=== PATIENT | female | born 1995 | race Caucasian/White ===

== ENCOUNTER 2018-11-03 20:35 | Emergency (ER) | payer SELFPAY ==
[~2018-11-03] VITALS: Ht 162.6 cm; Wt 54.4 kg
[2018-11-03 20:59] VITALS: BP 141/85
[2018-11-03] MEDS ORDERED: FLUORESCEIN SOD 1 MG TEST STRIP EACHEYE ONE (21:45)
[2018-11-03] MEDS ORDERED: DexAMETHasone SOD PHOS 10MG/1ML VIAL INJ IM ONE (21:45)
[2018-11-03] MEDS ORDERED: TETRACAINE HCL 0.5% OPTH(EYE) SOLN 4ML EACHEYE ONE (21:45)
== END 2018-11-03 22:49 | disposition home or self-care (01) ==
LOC: ER 20:43
DX: T26.61XA Corrosion of cornea and conjunctival sac, right eye, initial encounter (principal); T26.60XA Corrosion of cornea and conjunctival sac, unspecified eye, initial encounter; H16.001 Unspecified corneal ulcer, right eye; X18.XXXA Contact with other hot metals, initial encounter; Y93.89 Activity, other specified; Y99.8 Other external cause status; Y92.89 Other specified places as the place of occurrence of the external cause
CPT/HCPCS: 99284; J1100; J7030